=== PATIENT | male | born 1955 | race Caucasian/White ===

== ENCOUNTER 2018-10-12 05:53 | Inpatient (IN) | payer OTHER ==
[~2018-10-12] VITALS: Ht 177.8 cm; Wt 90.7 kg
[~2018-10-12 05:53] MED LIST: ATORVASTATIN CA20 MG PO; CIPRO500 MG PO; ENTIVIO IV; FINASTERIDE5 MG PO; FLOMAX0.4 MG PO; FLORINEF PO; HUMIRA40 MG/0.8 SQ; IMMURAN PO; LEVAQUIN500 MG PO; PREDNISONE20 MG PO; TEKTURNA150 MG PO; TESTOSTERONE5 GM IM; TYLENOL WITH C1 EACH PO; XYZAL5 MG PO
--- OUTSIDE RECORDS SUMMARY | 2018-10-12 05:56 | XMS REPORT ---
Author Author [facility] Address Unknown Phone Unavailable Care Team Providers Care Package Handler Name Role Phone Unavailable Unavailable Problems This patient has no known problems. Allergies, Adverse Reactions, Alerts This patient has no known allergies or adverse reactions. Medications This patient has no known medications.
[2018-10-12] MEDS ORDERED: LEVOFLOXACIN 500MG/D5W 100ML 100 ML IV ONE (06:22)
[2018-10-12] MEDS ORDERED: GENTAMICIN 80MG/NS 100 ML 200 ML IV ONE (06:23)
--- NOTE | 2018-10-12 07:05 | NUR ---
SPIRITUAL CARE - Pre-Surgery Assessment: Pt in bed. Pt's and son at bedside. Pt reported supportive attention from family and friends. Intervention: I provided pastoral presence, hospitality, and sympathetic listening. I acquainted pt with availability of clay thrower while hospitalized. Outcome: Pt expressed appreciation for visit. No need for follow up indicated at this time. YANI Lentzlain Spiritual Care Department O: [phone] Pager: [phone] ([phone] number calling from)
[2018-10-12] MEDS ORDERED: IOPAMIDOL 610MG/1ML 300 MG/ML VIAL IV ONE (07:58)
[2018-10-12] MEDS ORDERED: B&O 60MG R/S 60 MG SUPP PR ONE (07:58)
[2018-10-12] MEDS ORDERED: ONDANSETRON HCL INJ 2MG/ML 2ML 2 MG/ML VIAL IV PRN (10:00)
[2018-10-12] MEDS: LEVOFLOXACIN 500MG/D5W 100ML 100 ML IV SCH (10:00)
[2018-10-12] MEDS ORDERED: DIPHENHYDRAMINE HCL 25 MG CAP PO PRN (10:00)
[2018-10-12] MEDS ORDERED: FENTANYL CITRATE/PF 100MCG/2 ML INJ ONE ×2 (10:07→18:02)
[2018-10-12] MEDS ORDERED: HYDROMORPHONE 2MG/ML 2 MG/ML ML ONE (10:27)
[2018-10-12] MEDS ORDERED: MORPHINE SULFATE 2 MG/ML SYR 1ML ONE (10:27)
[2018-10-12] MEDS ORDERED: MORPHINE SULFATE INJ 4 MG/ML INJ 1ML ONE (11:13)
[2018-10-12 12:20] LABS: BASOPHILS % 0.2 % (0.0-1.0); EOSINOPHILS % 0.4 % (0.0-6.0); HEMATOCRIT 46.2 % (38.2-49.6); HEMOGLOBIN 15.8 g/dL (14.0-18.0); LYMPHOCYTES # (AUTO) 0.4 (1.0-3.2); LYMPHOCYTES % 7.8 % (18.0-39.1); MEAN CORPUSCULAR HEMOGLOBIN 31.7 pg (28-32); MEAN CORPUSCULAR HGB CONC 34.2 g/dL (31-35); MEAN CORPUSCULAR VOLUME 92.6 fL (81-99); MONOCYTES # (AUTO) 0.1 (0.2-0.8); MONOCYTES % 1.9 % (4.4-11.3); NEUTROPHILS # (AUTO) 4.3 (2.1-6.9); NEUTROPHILS % 89.3 % (38.7-80.0); PLATELET COUNT 197 x10e3/uL (140-360); RED BLOOD COUNT 4.99 x10e6/uL (4.3-5.7); RED CELL DISTRIBUTION WIDTH 13.6 % (11.7-14.4)
[2018-10-12 12:37] LABS: ANION GAP 14.6 mmol/L (8-16); BLOOD UREA NITROGEN 11 mg/dL (7-26); BUN/CREATININE RATIO 13 (6-25); CARBON DIOXIDE 24 mmol/L (22-29); CHLORIDE 103 mmol/L (98-107); CREATININE, SERUM 0.88 mg/dL (0.72-1.25); EST GLOMERULAR FILTRATION RATE > 60 ML/MIN (60-); GLUCOSE 131 mg/dL (74-118); POTASSIUM 3.6 mmol/L (3.5-5.1); SODIUM 138 mmol/L (136-145)
[2018-10-12 12:41] VITALS: BP 132/72
[2018-10-12 12:43] VITALS: BP 132/72
[2018-10-12] MEDS: D5.45%NS/KCL 20MEQ 1,000 ML IV SCH ×2 (13:19→21:44)
[2018-10-12] MEDS: PHENAZOPYRIDINE HCL 100 MG TAB PO SCH ×2 (13:19→18:00)
[2018-10-12] MEDS: ACETAMINOPHEN/CODEINE 300MG - 30MG TAB PO PRN ×3 (13:19→22:48)
[2018-10-12] MEDS: GENTAMICIN 80MG/NS 100 ML 100 ML IV SCH ×2 (14:00→21:44)
[2018-10-12 15:52] VITALS: BP 105/58
[2018-10-12] MEDS: DOCUSATE SODIUM 100 MG CAP PO SCH (17:00)
[2018-10-12] MEDS ORDERED: ONDANSETRON HCL INJ 2MG/ML 2ML 2 MG/ML VIAL ONE (18:02)
[2018-10-12] MEDS ORDERED: SEVOFLURANE INHAL SOLN 250 ML PEN BTL ONE (18:02)
[2018-10-12] MEDS ORDERED: MIDAZOLAM HCL 2 MG/2 ML VIAL ONE (18:02)
[2018-10-12] MEDS ORDERED: LIDOCAINE HCL 2% LOCAL INJ 5 ML SDV VIAL INJ ONE (18:02)
[2018-10-12] MEDS ORDERED: PROPOFOL IV EMULSION 10 MG/ML 20 ML VIAL ONE (18:02)
[2018-10-12] MEDS ORDERED: DEXAMETHASONE SOD PHOS INJ 4 MG/ML VIAL ONE (18:02)
[2018-10-12 20:00] VITALS: BP 135/63
[2018-10-13] VITALS (8 sets, daily range): BP systolic 102–128; BP diastolic 51–60
--- NOTE | 2018-10-13 04:52 | NUR ---
SPOKE DR. WRIGHT REGARDING PT HOME MEDS. MD ORDERED TO CONTINUE FINASTERIDE AND FLOMAX ONLY.
[2018-10-13] MEDS: B&O 60MG R/S 60 MG SUPP PR PRN (05:00)
[2018-10-13] MEDS: D5.45%NS/KCL 20MEQ 1,000 ML IV SCH ×3 (06:02→16:08)
[2018-10-13] MEDS: GENTAMICIN 80MG/NS 100 ML 100 ML IV SCH ×3 (06:02→22:11)
[2018-10-13 06:09] LABS: BASOPHILS % 0.1 % (0.0-1.0); EOSINOPHILS % 0.2 % (0.0-6.0); HEMATOCRIT 44.5 % (38.2-49.6); HEMOGLOBIN 15.1 g/dL (14.0-18.0); LYMPHOCYTES # (AUTO) 0.8 (1.0-3.2); LYMPHOCYTES % 9.2 % (18.0-39.1); MEAN CORPUSCULAR HEMOGLOBIN 31.5 pg (28-32); MEAN CORPUSCULAR HGB CONC 33.9 g/dL (31-35); MEAN CORPUSCULAR VOLUME 92.9 fL (81-99); MONOCYTES # (AUTO) 0.7 (0.2-0.8); MONOCYTES % 8.5 % (4.4-11.3); NEUTROPHILS # (AUTO) 6.9 (2.1-6.9); NEUTROPHILS % 81.6 % (38.7-80.0); PLATELET COUNT 208 x10e3/uL (140-360); RED BLOOD COUNT 4.79 x10e6/uL (4.3-5.7); RED CELL DISTRIBUTION WIDTH 13.5 % (11.7-14.4)
[2018-10-13 06:33] LABS: ANION GAP 14.7 mmol/L (8-16); BLOOD UREA NITROGEN 8 mg/dL (7-26); BUN/CREATININE RATIO 10 (6-25); CALCIUM 8.9 mg/dL (8.4-10.2); CARBON DIOXIDE 23 mmol/L (22-29); CHLORIDE 103 mmol/L (98-107); CREATININE, SERUM 0.83 mg/dL (0.72-1.25); EST GLOMERULAR FILTRATION RATE > 60 ML/MIN (60-); GLUCOSE 102 mg/dL (74-118); POTASSIUM 3.7 mmol/L (3.5-5.1); SODIUM 137 mmol/L (136-145)
--- NOTE | 2018-10-13 07:20 | NUR ---
RECEIVED PATIENT AWAKE RESTING IN BED. FAMILY AT BEDSIDE. BED LOW, WHEELS LOCKED, SIDE RAILS X2, CALL LIGHT IN REACH WILL CONTINUE TO MONITOR PATIENT.
[2018-10-13] MEDS: DOCUSATE SODIUM 100 MG CAP PO SCH ×2 (08:16→17:00)
[2018-10-13] MEDS: PHENAZOPYRIDINE HCL 100 MG TAB PO SCH ×3 (08:16→17:24)
[2018-10-13] MEDS ORDERED: FINASTERIDE 5 MG TAB PO SCH ×2 (09:00→21:00)
[2018-10-13] MEDS: LEVOFLOXACIN 500MG/D5W 100ML 100 ML IV SCH (09:04)
--- NOTE | 2018-10-13 09:25 | NUR ---
PATIENT A/O X3, EVEN RESPIRATIONS ON RA. CABRERA IN PLACE WITH CBI. URINE IS CLEAR YELLOW. LEFT HAND 20 GAUGE IV WITH IVF @ 125 CC/HR. TYLENOL #3 FOR PAIN NEEDED. VITAL SIGNS STABLE. AT BEDSIDE. CALL LIGHT IN REACH WILL CONTINUE TO MONITOR PATIENT.
[2018-10-13] MEDS: ACETAMINOPHEN/CODEINE 300MG - 30MG TAB PO PRN ×3 (11:08→22:18)
[2018-10-13] MEDS ORDERED: TAMSULOSIN HCL 0.4 MG CAP PO SCH (21:00)
[2018-10-14] VITALS: BP 131/69
[2018-10-14] MEDS: D5.45%NS/KCL 20MEQ 1,000 ML IV SCH ×3 (00:32→18:52)
[2018-10-14] MEDS: B&O 60MG R/S 60 MG SUPP PR PRN (01:39)
[2018-10-14 04:00] VITALS: BP 121/59
[2018-10-14 05:57] LABS: BASOPHILS % 0.2 % (0.0-1.0); EOSINOPHILS # (AUTO) 0.1 (0.0-0.4); EOSINOPHILS % 1.7 % (0.0-6.0); HEMATOCRIT 43.3 % (38.2-49.6); HEMOGLOBIN 14.4 g/dL (14.0-18.0); LYMPHOCYTES # (AUTO) 1.4 (1.0-3.2); LYMPHOCYTES % 27.3 % (18.0-39.1); MEAN CORPUSCULAR HEMOGLOBIN 31.4 pg (28-32); MEAN CORPUSCULAR HGB CONC 33.3 g/dL (31-35); MEAN CORPUSCULAR VOLUME 94.5 fL (81-99); MONOCYTES # (AUTO) 0.6 (0.2-0.8); NEUTROPHILS # (AUTO) 3.1 (2.1-6.9); NEUTROPHILS % 58.4 % (38.7-80.0); PLATELET COUNT 168 x10e3/uL (140-360); RED BLOOD COUNT 4.58 x10e6/uL (4.3-5.7); RED CELL DISTRIBUTION WIDTH 13.7 % (11.7-14.4)
[2018-10-14 06:20] LABS: ANION GAP 10.3 mmol/L (8-16); BLOOD UREA NITROGEN 7 mg/dL (7-26); BUN/CREATININE RATIO 8 (6-25); CALCIUM 8.6 mg/dL (8.4-10.2); CARBON DIOXIDE 26 mmol/L (22-29); CHLORIDE 107 mmol/L (98-107); CREATININE, SERUM 0.87 mg/dL (0.72-1.25); EST GLOMERULAR FILTRATION RATE > 60 ML/MIN (60-); GLUCOSE 128 mg/dL (74-118); POTASSIUM 4.3 mmol/L (3.5-5.1); SODIUM 139 mmol/L (136-145)
[2018-10-14] MEDS: GENTAMICIN 80MG/NS 100 ML 100 ML IV SCH ×2 (06:37→14:24)
[2018-10-14] MEDS: ACETAMINOPHEN/CODEINE 300MG - 30MG TAB PO PRN ×3 (06:51→17:15)
--- NOTE | 2018-10-14 07:14 | NUR ---
BEDSIDE REPORT GIVEN TO ONCOMING NURSE. PATIENT AAOX3, PAIN MEDICATION ADMINISTERED FOR 5/10 PAIN. NO FURTHER NEEDS VOICED AT THIS TIME. BED LOCKED AND IN LOWEST POSITION, CALL LIGHT WITHIN EASY REACH.
[2018-10-14] MEDS: DOCUSATE SODIUM 100 MG CAP PO SCH ×2 (09:00→17:00)
[2018-10-14] MEDS: PHENAZOPYRIDINE HCL 100 MG TAB PO SCH ×3 (09:08→18:52)
[2018-10-14] MEDS: LEVOFLOXACIN 500MG/D5W 100ML 100 ML IV SCH (09:20)
[2018-10-14 10:31] VITALS: BP 119/54
--- NOTE | 2018-10-14 17:20 | NUR ---
PATIENT VOIDED 5TH SERIAL URINE, CALLED DR. MOMIN, JAY'S OFFICE, CL OF THE [facility] STATED THAT HE WILL BE PAGED.
[2018-10-14 17:27] VITALS: BP 121/59
--- NOTE | 2018-10-14 17:44 | NUR ---
SPOKE TO DR. JAY MOMIN, DR. SO STATED THAT PATIENT IS OKAY TO DISCHARGE FROM HIS STANDPOINT.
[2018-10-14] MEDS ORDERED: LEVAQUIN500 MG PO (19:05)
[2018-10-14] MEDS ORDERED: TYLENOL # 31 EA PO (19:06)
--- NOTE | 2018-10-14 19:25 | NUR ---
DISCHARGE PACKET REVIEWED AND SIGNED BY PATIENT. FOLLOW UP ARRANGED. PRESCRIPTIONS GIVEN TO PATIENT. IV REMOVED FROM LEFT HAND WITH CATH TIP INTACT. PATIENT DENIES FURTHER QUESTIONS OR CONCERNS. REFUSED WHEELCHAIR ASSISTANCE, ESCORTED OUT BY THIS RN, INGRID3, RESP EVEN AND UNLABORED, STABLE CONDITION.
--- NOTE | 2018-10-16 19:14 | Discharge Summary ---
DISCHARGE DIAGNOSES: 1. Status post transurethral resection of prostate by Dr. Lang. 2. Benign prostatic hypertrophy. HISTORY OF PRESENT ILLNESS AND HOSPITAL COURSE: See hospital chart for full details. Patient is a gentleman, who was brought in due to severe BPH and was given a TURP by Dr. Lang and had no complications. Postoperatively, he did have some bladder spasms and was successfully treated. Once he was cleared by Dr. Lagn, patient was able to be discharged to home in good condition. He will follow up with Dr. Lang. MD MONTSE Culver/[facility] /[id number]
--- NOTE | 2018-12-09 04:08 | Operative Report ---
DATE OF PROCEDURE: 10/12/2018 SURGEON: Daniel Lang MD PREOPERATIVE DIAGNOSES: 1. Obstructive BPH. 2. Prostatitis. 3. Elevated PSA. POSTOPERATIVE DIAGNOSES: 1. Obstructive BPH. 2. Prostatitis. 3. Elevated PSA. OPERATION PERFORMED: 1. Transrectal sonography interpretation, no radiologist present. 2. Ultrasonographic interpretation for needle biopsy of the prostate, no radiologist present. 3. Transrectal needle biopsies of the prostate (separate procedure performed for the elevated PSA). 4. Cystourethroscopy with bilateral ureteral catheterization and retrograde ureteropyelography (separate procedure performed for the prostatitis). 5. Interpretation of retrograde ureteropyelography. 6. Supervision of fluoroscopy, no radiologist present. 7. Cystourethroscopy with transurethral resection of the prostate utilizing the plasma button electrode. ANESTHESIA: General. COMPLICATIONS: None. CLINICAL SUMMARY: Miguel Ellis is a 63-year-old man with a history of recurrent prostatitis. He has a history of bladder stone that got stuck in the urethra and required emergent intervention. The patient has had the above preoperative diagnosis and desires to proceed with surgery as planned. He is aware of the risks of bleeding, infection, injury to adjacent structures, incontinence, impotence, retrograde ejaculation, need for additional procedures, and elected to proceed. OPERATIVE PROCEDURE IN DETAIL: Informed consent was verified. Miguel Ellis was properly identified and taken to the operative room and placed on the cystoscopy table in supine position. Anesthesia was uneventfully begun. The patient was then carefully gently repositioned in the dorsal lithotomy position. All pressure points were padded. His genitalia were prepared and draped in usual sterile fashion. The patient was then carefully gently repositioned in dorsal lithotomy position with all pressure points well padded. A transrectal sonography was performed. Real-time sonography was performed. Interpretation of transrectal sonography, the patient's prostate volume was 38 cc. The capsule was smooth. There were calcifications noted in the transition zone periurethrally on either side. There was no heterogeneity of the prostatic parenchyma. The seminal vesicles were unremarkable. With ultrasonographic guidance, needle biopsies of the prostate were taken, a total of 12 biopsies was taken from six different locations. The six containers sent were labeled right versus left and base versus mid versus apex. Following obtaining the biopsies, the patient's genitalia were prepared and draped in the usual sterile fashion. The cystoscope sheath with the visual obturator in place was atraumatically inserted into the patient's urethra and it was guided down the unremarkable distal urethra through the normal sphincteric region through the prostate bed, which was significant for trilobar prostatic hypertrophy with visually obstructed prostatic urethra. We entered the patient's bladder and drained it. Panendoscopy of the bladder revealed grade 2 trabeculations with one diverticulum present in the right posterior wall. An 8-Peruvian catheter was used to cannulate each ureter and retrograde ureteral pyelograms were performed. Interpretation of retrograde ureteropyelography, contrast was instilled in retrograde fashion bilaterally. There were no tumors, no stones, and no diverticula. Unobstructed drainage was observed bilaterally fluoroscopically. The cystoscope was withdrawn. The resectoscope sheath was atraumatically placed with an obturator. We utilized the plasma button electrode to vaporize the prostate from the bladder neck to maneuver past the verumontanum. First, we limited the median lobe and then we worked on both lateral lobes. At the end of the vaporization procedure, complex cautery was utilized to achieve hemostasis. The hemostasis was excellent. The resectoscope was withdrawn. Rm catheter was placed. It was placed on continuous irrigation. It was irrigated to and fro to ensure it worked properly. A belladonna and opium suppository was placed revealing a 40 g prostate that is smooth, nonfluctuant without any nodules. The patient was then uneventfully reversed from anesthesia and taken to the recovery room in stable condition. There were no complications during the procedure. He tolerated the procedure well. We will proceed with routine postoperative care and of course follow the patient up on an indefinite basis. Regardless, we will plan on performing uroflowmetry and bladder ultrasonography on an outpatient basis to see the result of the surgery. Daniel Lang MD [place]/[facility] /[id number]
== END 2018-10-14 19:27 | disposition home or self-care (01) | DRG 713 ==
LOC: OR 05:53 → PACU V 09:53 → MED/SURG 12:37
PROVIDERS: ADMIT Internal Medicine; ATTEND Internal Medicine
PROC: 0V508ZZ Destruction of Prostate, Via Natural or Artificial Opening Endoscopic (ICD-10-PCS; principal; 2018-10-12 08:00)
PROC: 0VB07ZX Excision of Prostate, Via Natural or Artificial Opening, Diagnostic (ICD-10-PCS; 2018-10-12 08:00)
PROC: BT141ZZ Fluoroscopy of Kidneys, Ureters and Bladder using Low Osmolar Contrast (ICD-10-PCS; 2018-10-12 08:00)
DX: N40.1 Benign prostatic hyperplasia with lower urinary tract symptoms (principal); N13.8 Other obstructive and reflux uropathy; I10 Essential (primary) hypertension; E78.5 Hyperlipidemia, unspecified; Z88.0 Allergy status to penicillin; N32.89 Other specified disorders of bladder; Z87.442 Personal history of urinary calculi; D72.819 Decreased white blood cell count, unspecified; N41.9 Inflammatory disease of prostate, unspecified
CPT/HCPCS: 36415; 74420; 76872; 76998; 80048; 83735; 85025; 88305; 93005; C1758; J1100; J1580; J1956; J2001; J2250; J2270; J2405; J3010

== ENCOUNTER 2019-04-22 11:20 | Emergency (ER) | payer OTHER ==
[~2019-04-22] VITALS: Ht 175.3 cm; Wt 90.7 kg
[~2019-04-22 11:20] MED LIST changes: +TYLENOL # 31 EA PO
--- OUTSIDE RECORDS SUMMARY | 2019-04-22 11:23 | XMS REPORT | Summary of Care ---
Author Author WEDNESDAY CATIE Guerra Unknown Address Unknown Phone Unavailable Care Team Providers Care Manager Coding Name Role Phone WEDNESDAY CATIE Guerra Unavailable Unavailable WEDNESDAY CATIE GROVE Unavailable Unavailable Unavailable Unavailable Functional Status Name Dates Details Functional status health issues are not documented Status: Name Dates Details Cognitive status health issues are not documented Status: Problems Name Dates Details Memory loss (780.93, R41.3) Status: Active Medications Name Dates Details Tekturna HCT 300-25 MG Oral Tablet Active Oxybutynin Chloride TABS * Refills: 0 Active Imuran TABS * Refills: 0 Active Testosterone Cypionate 200 MG/ML OIL * Refills: 0 Active buPROPion HCl ER (SR) 150 MG Oral Tablet Extended Release 12 Hour TAKE 1 TABLET DAILY. * Quantity: 30 Refills: 0 WEDNESDAY CATIE Guerra * Start : 06-Mar-2019 Active buPROPion HCl - 75 MG Oral Tablet take one QAM * Quantity: 30 Refills: 3 Wednesday.CATIE Ramirez * Start : 06-Mar-2019 Active Allergies and Adverse Reactions Name Dates Details Penicillins (Allergy) Status: Active Procedures Procedure Dates Details Procedures not documented Immunization Name Dates Details Immunizations not documented Social History Name Dates Details Unknown if ever smoked Vital Signs Date Test Result Details [id number] BP Systolic 132 mm[Hg] Status: Comments: Location: LLE; Position: Sitting BP Diastolic 78 mm[Hg] Status: Comments: Location: E; Position: Sitting Height 69 in Status: Weight 201 lb Status: Body Mass Index Calculated 29.68 kg/m2 Status: Body Surface Area Calculated 2.07 m2 Status: Temperature 97.3 f Status: Heart Rate 78 /min Status: Results Date Description Value Details Results not documented Plan of Care Name Dates Details Planned Observations Planned Goals not documented Interventions Provided Medication Changes* buPROPion HCl - 75 MG Oral Tablet - Start * buPROPion HCl ER (SR) 150 MG Oral Tablet Extended Release 12 Hour - Start Instructions Name Dates Details Instructions not documented Encounters No Encounter data documented Encounter Diagnosis: Problem not documented On: 06-Mar-2019
[2019-04-22] MEDS ORDERED: BUPROPION HCL100 MG PO (12:25)
[2019-04-22] MEDS ORDERED: CIALIS5 MG (12:25)
[2019-04-22] MEDS ORDERED: ATORVASTATIN CA20 MG PO (12:25)
[2019-04-22] MEDS ORDERED: OXYBUTYNIN CHLOR5 MG PO (12:25)
[2019-04-22] MEDS ORDERED: XIIDRA1 EACH (12:25)
[2019-04-22] MEDS ORDERED: CEFUROXIME250 MG PO (12:48)
[2019-04-22 13:04] VITALS: BP 141/80
== END 2019-04-22 13:02 | disposition home or self-care (01) ==
LOC: FSED 11:20
DX: I10 Essential (primary) hypertension (principal); E78.5 Hyperlipidemia, unspecified; F17.290 Nicotine dependence, other tobacco product, uncomplicated; Z88.0 Allergy status to penicillin
CPT/HCPCS: 81003; 87086; 87186; 99283

== ENCOUNTER → 2019-08-16 | Outpatient (CLI) | payer OTHER ==
[~2019-08-16] MED LIST changes: +BUPROPION HCL100 MG PO; +CEFUROXIME250 MG PO; +CIALIS5 MG; +OXYBUTYNIN CHLOR5 MG PO; +XIIDRA1 EACH
--- NOTE | 2019-08-16 14:09 | Diagnostic Imaging Report ---
EXAMINATION: C-SPINE 2 VIEWS AP LATERAL INDICATION: Neck pain COMPARISON: None FINDINGS: No acute fracture. Alignment appears anatomic. Mild multilevel degenerative changes of the cervical spine with disc space narrowing and small osteophyte formation. Prevertebral soft tissues are normal in thickness. Minimally visualized lung apices are clear. IMPRESSION: No acute osseous injury. Mild multilevel degenerative changes. Signed by: Ross Fried MD on 08/16/2019 2:05 PM
--- NOTE | 2019-08-16 14:09 | Diagnostic Imaging Report ---
EXAMINATION: SHOULDER LEFT COMPLETE INDICATION: Shoulder pain COMPARISON: None FINDINGS: No acute fracture or dislocation. Alignment is anatomic. Soft tissues appear unremarkable. Partially visualized left lung is clear. IMPRESSION: No acute osseous injury. Signed by: Ross Fried MD on 08/16/2019 2:05 PM
== END ==
LOC: RAD 13:05
PROVIDERS: ATTEND Internal Medicine
DX: M25.512 Pain in left shoulder (principal); M54.2 Cervicalgia
CPT/HCPCS: 72040

== ENCOUNTER 2024-03-18 20:26 | Observation (INO) | payer MEDICARE, OTHER ==
[~2024-03-18] VITALS: Ht 177.8 cm; Wt 86.6 kg
[2024-03-18 20:32] VITALS: TEMP 99
[2024-03-18 21:08] LABS: BASOPHILS % 0.2 % (0.0-1.0); EOSINOPHILS % 0.2 % (0.0-6.0); HEMATOCRIT 49.3 % (38.2-49.6); HEMOGLOBIN 15.9 g/dL (14.0-18.0); LYMPHOCYTES # (AUTO) 1.2 (1.0-3.2); LYMPHOCYTES % 12.4 % (18.0-39.1); MEAN CORPUSCULAR HEMOGLOBIN 32.3 pg (28-32); MEAN CORPUSCULAR HGB CONC 32.3 g/dL (31-35); MONOCYTES # (AUTO) 0.3 (0.2-0.8); MONOCYTES % 3.6 % (4.4-11.3); NEUTROPHILS # (AUTO) 7.8 (2.1-6.9); NEUTROPHILS % 83.4 % (38.7-80.0); PLATELET COUNT 208 x10e3/uL (140-360); RED BLOOD COUNT 4.93 x10e6/uL (4.3-5.7); RED CELL DISTRIBUTION WIDTH 13.5 % (11.7-14.4); WHITE BLOOD COUNT 9.33 x10e3/uL (4.8-10.8)
[2024-03-18 21:18] LABS: CLARITY,URINE CLEAR (CLEAR); COLOR,URINE YELLOW (YELLOW); LEUKOCYTE ESTERASE ,URINE TRACE (NEGATIVE); PH,URINE 7 (5 - 7)
[2024-03-18 21:19] LABS: BILIRUBIN,URINE NEGATIVE (NEGATIVE); GLUCOSE, URINE NEGATIVE (NEGATIVE); KETONES,URINE NEGATIVE (NEGATIVE); NITRITE,URINE NEGATIVE (NEGATIVE); PROTEIN,URINE DIPSTICK NEGATIVE (NEGATIVE); URINE UROBILINOGEN 0.2 mg/dL (0.2 - 1)
[2024-03-18 21:29] LABS: BACTERIA,URINE FEW /HPF; EPITHELIAL CELLS,URINE FEW /LPF; RBC,URINE 0-5 /HPF (0-5); WBC,URINE (MAN) 21-50 /HPF (0-5)
[2024-03-18 21:29] LABS: ALBUMIN 4.2 g/dL (3.5-5.0); ALBUMIN/GLOBULIN RATIO 1.5 (0.8-2.0); ANION GAP 15.2 mmol/L (8-16); BILIRUBIN,TOTAL 0.6 mg/dL (0.2-1.2); CALCIUM 9.1 mg/dL (8.4-10.2); CREATININE, SERUM 0.99 mg/dL (0.72-1.25); POTASSIUM 4.2 mmol/L (3.5-5.1)
[2024-03-18] MEDS ORDERED: IOPAMIDOL 370 MG/ML 100 ML INFUS..BTL INJ ONE (22:01)
[2024-03-18] MEDS ORDERED: SODIUM CHLORIDE FLUSH 10 ML SYR INJ PRN (23:15)
[2024-03-18] MEDS ORDERED: ONDANSETRON HCL INJ 2MG/ML 2ML 2 MG/ML VIAL IV PRN (23:15)
[2024-03-19] VITALS (10 sets, daily range): BP systolic 124–156; BP diastolic 69–85; PULSE 79–98; RESP 16–20; TEMP 98.3–98.4; O2SAT 95–100
[2024-03-19] MEDS: VANCOMYCIN HCL 125 MG CAPSULE PO SCH ×2 (00:41→09:19)
[2024-03-19] MEDS: ASPIRIN 81 MG CHEW TAB PO ONE (00:41)
[2024-03-19] MEDS ORDERED: FLORINEF ACETA0.1 MG PO (02:48)
[2024-03-19] MEDS ORDERED: HYDROCODON-ACE1 EA12 PO (02:48)
[2024-03-19] MEDS ORDERED: SKYRIZI150 MG/1 M SC (02:48)
[2024-03-19] MEDS ORDERED: TESTOSTERO200 MG/1 M SC (02:48)
[2024-03-19] MEDS ORDERED: MULTI-VITAMIN1 EACH PO (02:48)
[2024-03-19] MEDS ORDERED: AMITRIPTYLINE H50 MG PO (02:48)
[2024-03-19] MEDS ORDERED: DICYCLOMINE HCL10 MG PO (02:48)
[2024-03-19] MEDS ORDERED: BUPRENORPHINE1 EAC3 TOP (02:48)
[2024-03-19] MEDS ORDERED: COQ-10100 MG PO (02:48)
[2024-03-19] MEDS ORDERED: FOLIC ACID0.4 MG PO (02:48)
[2024-03-19] MEDS ORDERED: METFORMIN HCL1000 MG PO (02:48)
[2024-03-19] MEDS ORDERED: METHOTREXATE2.5 MG PO (02:48)
[2024-03-19] MEDS ORDERED: AMLODIPINE BESY10 MG PO (02:48)
[2024-03-19] MEDS ORDERED: CIALIS10 MG PO (02:48)
[2024-03-19] MEDS ORDERED: calcium with D PO (02:48)
[2024-03-19 05:18] LABS: BASOPHILS % 0.1 % (0.0-1.0); EOSINOPHILS # (AUTO) 0.2 (0.0-0.4); EOSINOPHILS % 2.3 % (0.0-6.0); HEMATOCRIT 45.6 % (38.2-49.6); HEMOGLOBIN 14.9 g/dL (14.0-18.0); LYMPHOCYTES # (AUTO) 1.5 (1.0-3.2); LYMPHOCYTES % 20.5 % (18.0-39.1); MEAN CORPUSCULAR HEMOGLOBIN 32.2 pg (28-32); MEAN CORPUSCULAR HGB CONC 32.7 g/dL (31-35); MEAN CORPUSCULAR VOLUME 98.5 fL (81-99); MONOCYTES # (AUTO) 0.6 (0.2-0.8); MONOCYTES % 8.1 % (4.4-11.3); NEUTROPHILS % 68.9 % (38.7-80.0); PLATELET COUNT 201 x10e3/uL (140-360); RED BLOOD COUNT 4.63 x10e6/uL (4.3-5.7); RED CELL DISTRIBUTION WIDTH 13.2 % (11.7-14.4); WHITE BLOOD COUNT 7.26 x10e3/uL (4.8-10.8)
[2024-03-19 05:45] LABS: ALBUMIN 3.8 g/dL (3.5-5.0); ALBUMIN/GLOBULIN RATIO 1.5 (0.8-2.0); ANION GAP 15.6 mmol/L (8-16); BILIRUBIN,TOTAL 0.4 mg/dL (0.2-1.2); CALCIUM 9.1 mg/dL (8.4-10.2); CREATININE, SERUM 0.88 mg/dL (0.72-1.25); POTASSIUM 3.6 mmol/L (3.5-5.1); TOTAL PROTEIN 6.4 g/dL (6.5-8.1)
[2024-03-19 06:11] LABS: TROPONIN I 0.047 ng/mL (0-0.300)
== END 2024-03-19 10:40 | disposition home or self-care (01) ==
LOC: ER 20:35 → ERHOLD 23:06 → MED/SURG2 23:51
PROVIDERS: ADMIT Internal Medicine; ATTEND Internal Medicine
DX: R55 Syncope and collapse (principal); R07.89 Other chest pain; S20.212A Contusion of left front wall of thorax, initial encounter; S60.222A Contusion of left hand, initial encounter; W18.39XA Other fall on same level, initial encounter; Y92.002 Bathroom of unspecified non-institutional (private) residence as the place of occurrence of the external cause; I10 Essential (primary) hypertension; I25.10 Atherosclerotic heart disease of native coronary artery without angina pectoris; Z95.5 Presence of coronary angioplasty implant and graft; E78.5 Hyperlipidemia, unspecified; K51.90 Ulcerative colitis, unspecified, without complications; M06.9 Rheumatoid arthritis, unspecified; Z86.718 Personal history of other venous thrombosis and embolism; F17.200 Nicotine dependence, unspecified, uncomplicated; Z87.440 Personal history of urinary (tract) infections; Z88.0 Allergy status to penicillin; Z79.899 Other long term (current) drug therapy
CPT/HCPCS: 36415 ×2; 70450; 70496; 70498; 71045; 80053 ×2; 81001; 82550; 84484 ×2; 85025 ×2; 87086; 93005; 94799; 99284; G0378 ×2; J0696; Q9967